=== PATIENT | female | born 1990 | race Caucasian/White ===

== ENCOUNTER 2021-08-22 19:36 | Inpatient (IN) | payer MEDICAID ==
[~2021-08-22] VITALS: Ht 162.6 cm; Wt 52.6 kg
--- NOTE | 2021-08-22 21:59 | NUR ---
URINE SPECIMEN COLLECTED AND SENT TO LAB.
[2021-08-22] MEDS ORDERED: MORPHINE SULFATE INJ 2 MG/ML DISP.SYRIN IV ONE (22:00)
[2021-08-22] MEDS ORDERED: IV NS 0.9% 500 ML BAG IV ONE (22:00)
[2021-08-22] MEDS ORDERED: ONDANSETRON HCL/PF 4 MG/2 ML VIAL IVP ONE (22:00)
[2021-08-22] MEDS ORDERED: ONDANSETRON HCL/PF 4 MG/2 ML VIAL ONE (22:02)
[2021-08-22] MEDS ORDERED: MORPHINE SULFATE INJ 4 MG/ML DISP.SYRIN ONE (22:02)
[2021-08-22 22:13] LABS: BASOPHILS % (AUTO) 0.2 % (0.0-2.0); HEMATOCRIT 40 % (33-45); HEMOGLOBIN 13.3 g/dL (11.5-14.8); LYMPHOCYTES # (AUTO) 1.5 K/uL (0.8-4.8); LYMPHOCYTES % (AUTO) 13.8 % (20.0-44.0); MEAN CORPUSCULAR HGB CONC 34 g/dl (31.0-36.0); MEAN CORPUSCULAR VOLUME 102 fL (82-100); MONOCYTES # (AUTO) 0.9 K/uL (0.1-1.30); MONOCYTES % (AUTO) 8.4 % (2.0-12.0); NEUTROPHILS # (AUTO) 8.4 K/uL (1.8-8.9); NEUTROPHILS % (AUTO) 77.6 % (43.0-81.0); PLATELET COUNT (AUTO) 297 K/uL (150-450); WHITE BLOOD COUNT (AUTO) 10.8 K/uL (4.3-11.0)
--- NOTE | 2021-08-22 22:16 | NUR ---
BLOOD COLLECTED AND SENT TO LAB
[2021-08-22 22:18] LABS: BILIRUBIN,URINE NEGATIVE (NEGATIVE); COLOR,URINE YELLOW (YELLOW); LEUKOCYTE ESTERASE ,URINE NEGATIVE (NEGATIVE); NITRITE, URINE NEGATIVE (NEGATIVE); PROTEIN,URINE NEGATIVE (NEGATIVE); UGLUCOSE NEGATIVE (NEGATIVE); UROBILINOGEN,URINE 0.2 EU/dL (0.2)
[2021-08-22 22:38] LABS: CALCIUM, SERUM 9.2 mg/dL (8.5-10.1); CREATININE 0.9 mg/dL (0.6-1.3); POTASSIUM 3.4 mmol/L (3.5-5.1)
[2021-08-22 22:50] LABS: ALBUMIN 4.2 g/dL (3.4-5.0); BILIRUBIN,DIRECT 0.2 mg/dL (0.0-0.2); BILIRUBIN,TOTAL 0.6 mg/dL (0.2-1.0); TOTAL PROTEIN, SERUM 7.8 g/dL (6.4-8.2)
[2021-08-22] MEDS ORDERED: IV NS 0.9% 250 ML IV ONE (23:52)
[2021-08-22] MEDS ORDERED: IOHEXOL-300 100 ML VIAL IV ONE (23:52)
--- NOTE | 2021-08-23 00:18 | NUR ---
BACK FROM RADIOLOGY
--- NOTE | 2021-08-23 02:20 | NUR ---
paged dr arin weldon, gen surg
--- NOTE | 2021-08-23 02:24 | NUR ---
COVID SWAB COLLECTED SENT TO LAB
[2021-08-23] MEDS ORDERED: CEFTRIAXONE 1GM BAG (ER ONLY) 50 ML IV ONE ×2 (02:25→02:30)
[2021-08-23] MEDS ORDERED: METRONIDAZOLE 500MG/ NS 100ML 100 ML IV ONE ×2 (02:30→03:14)
[2021-08-23] MEDS ORDERED: MORPHINE SULFATE INJ 2 MG/ML DISP.SYRIN IV ONE (02:30)
[2021-08-23] MEDS ORDERED: MORPHINE SULFATE INJ 4 MG/ML DISP.SYRIN ONE (02:40)
[2021-08-23] MEDS ORDERED: IV NS 0.9% 1,000 ML IV PRN ×2 (03:00→11:45)
[2021-08-23] MEDS ORDERED: ACETAMINOPHEN 325 MG TABLET PO PRN (03:00)
[2021-08-23] MEDS ORDERED: ONDANSETRON HCL/PF 4 MG/2 ML VIAL IVP PRN (03:00)
--- NOTE | 2021-08-23 03:08 | NUR ---
re paged dr arin weldon
--- NOTE | 2021-08-23 04:50 | NUR ---
report given to wanda bowden
--- NOTE | 2021-08-23 05:10 | NUR ---
PT WAS TRANSFERRED TO [facility] IN STABLE CONDITION
--- NOTE | 2021-08-23 05:15 | NUR ---
MS RN NOTE RECEIVED PT FROM ER. A 31 Y/O F A/O X4. PT WAS ABLE TO AMBULATE BY HERSELF. ON RA TOLERATING WELL CURRENTLY SATING AT 99%. BREATHING EVEN AND UNLABORED. ABLE TO MAKE NEEDS KNOWN. V/S TAKEN AND RECORDED. INITIAL PHYSICAL ASSESSMENT DONE. SKIN DRY AND INTACT. WITH IV ACCESS ON L AC #18, INTACT AND PATENT. STARTED WITH IV FLUIDS OF NS RUNNING AT 75 ML/HR, INFUSING WELL. NO BLEEDING NOTED AT THIS TIME. NO SOB AND ACUTE DISTRESS NOTED. PT WAS ORIENTED TO THE UNIT, VERBALIZE UNDERSTANDING. CALL LIGHT WITHIN REACH. BED LOCKED AND IN LOWEST POSITION. WILL CONTINUE TO MONITOR.
[2021-08-23] MEDS ORDERED: CEFTRIAXONE 1 G VIAL ONE (05:31)
[2021-08-23 05:45] VITALS: BP 128/85
[2021-08-23 06:00] VITALS: BP 125/85
[2021-08-23] MEDS ORDERED: BICT1TAB PO (07:16)
--- NOTE | 2021-08-23 07:20 | NUR ---
MS RN NOTES PATIENT IN BED ALERT ORIENTED X 4, HEAD OF BED ELEVATED, NO ACUTE DISTRESS NOTED. BREATHING UNLABORED. SAFETY MEASURES IN PLACE. CALL LIGHT WITHIN REACH. WILL CONTINUE TO MONITOR ACCORDINGLY.
[2021-08-23 08:00] VITALS: BP 120/72
[2021-08-23] MEDS: MORPHINE SULFATE INJ 2 MG/ML DISP.SYRIN IV PRN (09:57)
[2021-08-23] MEDS: METRONIDAZOLE 500MG/ NS 100ML 500 MG in PREMIX 1 EA IV SCH ×2 (12:14→23:07)
[2021-08-23] MEDS: BIKTARVY PO SCH (15:00)
[2021-08-23] MEDS ORDERED: POTASSIUM CHLORIDE 20 MEQ TAB.PRT.SR PO SCH (16:00)
[2021-08-23 16:11] VITALS: BP 114/71
[2021-08-23] MEDS ORDERED: HYDROMORPHONE INJ 2 MG/ML DISP.SYRIN ONE (18:55)
[2021-08-23] MEDS ORDERED: MIDAZOLAM HCL 2 MG/2ML VIAL ONE (18:55)
[2021-08-23] MEDS ORDERED: FENTANYL PF 250MCG/5ML AMPUL ONE (18:55)
[2021-08-23] MEDS ORDERED: ROCURONIUM BROMIDE 50 MG/5 ML ONE (18:56)
[2021-08-23] MEDS ORDERED: FAMOTIDINE/PF INJ 20 MG/2 ML VIAL IV ONE (18:56)
--- NOTE | 2021-08-23 19:00 | NUR ---
MS RN NOTES PATIENT IN BED ALERT ORIENTED X 4, HEAD OF BED ELEVATED, NO ACUTE DISTRESS NOTED. BREATHING UNLABORED.NEEDS ATTENDED AND ANTICIPATED. SAFETY MEASURES IN PLACE. CALL LIGHT WITHIN REACH. WILL ENDORSE TO NIGHT NURSE FOR CONTINUITY OF CARE.
[2021-08-23] MEDS ORDERED: ANESTHESIA TRAY IN PYXIS 1 EA TRAY MC ONE (19:06)
[2021-08-23] MEDS ORDERED: LIDOCAINE HCL/MPF 1% 30 ML VIAL IJ ONE (19:07)
[2021-08-23] MEDS ORDERED: BUPIVACAINE MPF 0.5% W/EPI INJ 30 ML VIAL ONE (19:08)
--- NOTE | 2021-08-23 19:30 | NUR ---
MS RN OPENING RECEIVED PATIENT IN BED WITH EYES CLOSED. EASY TO AROUSE. A/OX4. NO S/S OF APPARENT DISTRESS ON ROOM AIR, HOB ELEVATED. PATIENT SCHEDULED FOR PROCEDURE LAP APPENDECTOMY BY WITH DR. MONTIEL. CONSENTS SIGNED. ORIENTED WITH THE USE OF CALL LIGHT. NO NEEDS AT THIS TIME. WILL GET V/S.
--- NOTE | 2021-08-23 19:34 | NUR ---
MS RN NOTE OR PERSONNELS CAME EXACTLY 1919. PATIENT TAKEN DOWN AT AROUND 1924. V/S FOLLOWS: 121/66, HR-109, SATURATION 99%, T-98.7 F, RR 18. PATIENT A/OX4. CONSENTS SIGNED.
[2021-08-23 20:00] VITALS: BP 121/66
[2021-08-23] MEDS ORDERED: CEFTRIAXONE 1 G in IV D5W 50 ML IV SCH (21:00)
--- NOTE | 2021-08-23 22:31 | NUR ---
MS RN NOTE PATIENT BROUGHT BACK IN UNIT EXACTLY @2200. A/OX4, STILL GROGGY. PATIENT STATES RELIEF OF PAIN AFTER PROCEDURE. 3 HOLES NOTED IN ABDOMEN, SOFT AND NON-TENDER TO PALPATE. STARTED ON IV NS AND ANTIBIOTICS THAT WERE SUPPOSEDLY SCHEDULED 2099 BUT PATIENT WAS IN SURGERY. NEEDS ATTENDED FOR NOW. IN CLEAR LIQUID DIET-- TOLERATING WELL. SAFETY IN PLACE. RE-ORIENTED BY THE USE OF CALL LIGHT. WILL CONTINUE TO MONITOR.
--- NOTE | 2021-08-23 22:40 | NUR ---
MS RN NOTE PATIENT'S AT BEDSIDE. PATIENT EDUCATED WITH USE OF INCENTIVE SPIROMETER. PATIENT ACKNOWLEDGES.
[2021-08-24] VITALS: BP 117/65
[2021-08-24] MEDS: METRONIDAZOLE 500MG/ NS 100ML 500 MG in PREMIX 1 EA IV SCH (05:17)
--- NOTE | 2021-08-24 06:30 | NUR ---
MS RN CLOSING NOTE PATIENT IN BED WITH EYES CLOSED, EASY TO AROUSE. NO S/S OF APPARENT DISTRESS ON ROOM AIR. NO C/O PAIN. IV NS RUNNING @125MLS/HR. PATIENT ALREADY AMBULATED THIS MORNING. TOLERATED CLEAR LIQUIDS LAST NIGHT. ALL NEEDS ATTENDED. ALL SCHEDULED MEDICATIONS ADMINISTERED. WILL ENDORSE TO MORNING SHIFT RN FOR CONTINUITY OF CARE.
[2021-08-24 06:46] LABS: BASOPHILS % (AUTO) 0.2 % (0.0-2.0); EOSINOPHILS % (AUTO) 0.1 % (0.0-6.0); HEMATOCRIT 31 % (33-45); HEMOGLOBIN 10.6 g/dL (11.5-14.8); LYMPHOCYTES # (AUTO) 1.1 K/uL (0.8-4.8); LYMPHOCYTES % (AUTO) 12.8 % (20.0-44.0); MEAN CORPUSCULAR HGB CONC 34 g/dl (31.0-36.0); MEAN CORPUSCULAR VOLUME 102 fL (82-100); MONOCYTES # (AUTO) 0.8 K/uL (0.1-1.30); MONOCYTES % (AUTO) 9.6 % (2.0-12.0); NEUTROPHILS # (AUTO) 6.5 K/uL (1.8-8.9); NEUTROPHILS % (AUTO) 77.3 % (43.0-81.0); PLATELET COUNT (AUTO) 214 K/uL (150-450); RED BLOOD CELL COUNT(AUTO) 3.03 MIL/uL (4.0-5.2); WHITE BLOOD COUNT (AUTO) 8.4 K/uL (4.3-11.0)
[2021-08-24 07:38] LABS: CREATININE 0.8 mg/dL (0.6-1.3); PHOSPHORUS 4.2 mg/dL (2.5-4.9); POTASSIUM 3.9 mmol/L (3.5-5.1)
[2021-08-24 08:00] VITALS: BP 105/70
--- NOTE | 2021-08-24 08:00 | NUR ---
RN OPENING NOTE PATIENT RECEIVED IN BED, AO X 4. ABLE TO RESPONDS ALL STIMULI. IN NO ACUTE DISTRESS NOTED. RESPIRATORY EVEN AND UNLABORED ON ROOM AIR. SKIN IS WARM TO TOUCH, KEEP CLEAN/DRY. KEPT ELEVATED HOB FOR ENSURE AIRWAY AND ASPIRATION PRECAUTION, ALSO LOWEST POSITION OF THE BED, S/R UP X 3, BED ALARM IS ON AT ALL THE TIMES. ALL SAFETY PRECAUTION APPLIED. CALL LIGHT WITHIN REACH, WILL CONTINUE TO MONITOR.
[2021-08-24 08:44] LABS: CALCIUM, SERUM 7.9 mg/dL (8.5-10.1); MAGNESIUM 1.7 mg/dL (1.8-2.4)
[2021-08-24] MEDS: BIKTARVY PO SCH (08:56)
[2021-08-24] MEDS ORDERED: BIKTARVY PO SCH (09:00)
[2021-08-24] MEDS: Magnesium 1GM/D5W 100ML PREMIX 100 ML IV SCH ×2 (10:08→12:03)
--- NOTE | 2021-08-24 11:58 | NUR ---
PATIENT D/C TO HOME AND GIVEN DISCHARGE INSTRUCTION INCLUDE NEW MEDICATION FOR PAIN. IN NO ACUTE DISTRESS OBSERVED, IN STABLE CONDITION. REMOVED IV AND RETURNED HOME MEDICATION.
[2021-08-24] MEDS: MORPHINE SULFATE INJ 2 MG/ML DISP.SYRIN IV PRN (12:04)
[2021-08-24] MEDS ORDERED: VANCOMYCIN 1 GM in IV D5W 250ml IV SCH (13:00)
== END 2021-08-24 13:00 | disposition home or self-care (01) | DRG 233 ==
LOC: ER 19:39 → MED 08-23 04:45
PROVIDERS: ADMIT Student in an Organized Health Care Education/Training Program; ATTEND Student in an Organized Health Care Education/Training Program
PROC: 0DTJ4ZZ Resection of Appendix, Percutaneous Endoscopic Approach (ICD-10-PCS; principal; 2021-08-23)
DX: K35.32 Acute appendicitis with perforation, localized peritonitis, and gangrene, without abscess (principal); E87.6 Hypokalemia; K40.90 Unilateral inguinal hernia, without obstruction or gangrene, not specified as recurrent; Z20.822 Contact with and (suspected) exposure to COVID-19
CPT/HCPCS: 36415; 76856-TC; 80048-TC; 80076-TC; 83605-TC; 83690-TC; 83735-TC; 84100-TC; 84702-TC; 84703-TC; 85025-TC; 85610-TC; 87040-TC; 87081-TC; 87086-TC; A4216; C9803; G0378; J0696; J1170; J2250; J2270; J2405; J3010; J3370; J3475; J3490; J7030; J7050; J7060; Q9967